=== PATIENT | female | born 1955 | race Caucasian/White ===

== ENCOUNTER 2018-12-18 06:43 | Day surgery (SDC) | payer OTHER ==
--- NOTE | 2018-12-17 14:33 | Pre-Procedure Note/Attestation ---
Pre-Procedure Note/Attestation Complete Prior to Procedure Planned Procedure: right Procedure Narrative: cataract extraction with implant right eye Indications for Procedure Pre-Operative Diagnosis: cataract right eye Attestation I attest that I discussed the nature of the procedure; its benefits; risks and complications; and alternatives (and the risks and benefits of such alternatives ), prior to the procedure, with the patient (or the patient's legal congressional representative). I attest that, if there was a reasonable possibility of needing a blood transfusion, the patient (or the patient's legal congressional representative) was given the [facility] standardized written summary, pursuant to the Wisam Bratenahl Blood Safety Act ([place] Health and Safety Code # 1645, as amended). I attest that I re-evaluated the patient just prior to the surgery and that there has been no change in the patient's H&P, except as documented below: Luis Stewart MD Dec 17, 2018 14:33
[~2018-12-18] VITALS: Ht 157.5 cm; Wt 64.4 kg
[2018-12-18] VITALS (10 sets, daily range): BP systolic 122–164; BP diastolic 53–76
[~2018-12-18 06:43] MED LIST: SYNTHROID100 MCG ORAL; SYNTHROID88 MCG ORAL; TOPIRAMATE25 MG ORAL
[2018-12-18] MEDS: Tropicamide 1% Opth 15ml Soln RIGHT EYE SCH ×3 (07:15→07:44)
[2018-12-18] MEDS: Diclofenac Sod 0.1% Op Soln RIGHT EYE SCH ×3 (07:15→07:44)
[2018-12-18] MEDS: Akten 3.5% 1ml Btl RIGHT EYE SCH ×3 (07:16→07:44)
[2018-12-18] MEDS: Phenylephrine 2.5% Op 2ml Soln RIGHT EYE SCH ×3 (07:16→07:44)
[2018-12-18] MEDS: Tobradex Opth Susp 2.5ml RIGHT EYE SCH ×3 (07:16→07:44)
[2018-12-18] MEDS: Vigamox Opth Soln 3ml RIGHT EYE SCH ×3 (07:18→07:44)
[2018-12-18] MEDS ORDERED: LR 1000ml 1,000 ML IVLG SCH (07:23)
--- NOTE | 2018-12-18 07:23 | Anethesia Preoperative Eval ---
Anesthesia Pre-op PMH/ROS General Date of Evaluation: Dec 18, 2018 Anesthesiologist: Yohannes ASA Score: ASA 2 Mallampati Score Class I : Soft palate, uvula, fauces, pillars visible Class II: Soft palate, uvula, fauces visible Class III: Soft palate, base of uvula visible Class IV: Only hard plate visible Mallampati Classification: Class II Surgeon: sam Diagnosis: right catrct Surgical Procedure: right cataract exraction with IOL Anesthesia History: none Family History: no anesthesia problems Allergies: Coded Allergies: PENICILLINS (Verified Allergy, Intermediate, rash, 12/17/18) LATEX (Verified Adverse Reaction, Mild, itching, 12/17/18) Medications: see eMAR Patient NPO?: Yes NPO Date: Dec 17, 2018 NPO Time: 22:00 Past Medical History Cardiovascular: Denies: HTN, CAD, CT, valve dz, arrhythmia, other Pulmonary: Denies: asthma, COPD, [place], other Gastrointestinal/Genitourinary: Denies: GERD, CRI, ESRD, other Neurologic/Psychiatric: Denies: dementia, CVA, depression/anxiety, TIA, other Endocrine: Reports: hypothyroidism; Denies: DM, steroids, other HEENT: Denies: cataract (L), cataract (R), glaucoma, [place] (L), [place] (R), other Hematology/Immune: Denies: anemia, DVT, bleeding disorder, other Musculoskeletal/Integumentary: Reports: OA; Denies: RA, DJD, DDD, edema, other PSxH Narrative: lap appy Anesthesia Pre-op Phys. Exam Physician Exam see chart Constitutional: NAD Cardiovascular: RRR Respiratory: CTA Airway Exam Mallampati Score: Class II MO: full ROM: full Anesthesia Pre-op A/P Labs see chart Studies Pre-op Studies: EKG - sr Risk Assessment & Plan Assessment: ASA II Plan: MAC Status Change Before Surgery: No Pre-Antibiotics Drug: N/A Paty Maki MD Dec 18, 2018 07:23
[2018-12-18] MEDS ORDERED: DiphenhydrAMINE 50mg/ml Inj IVP PRN (07:30)
[2018-12-18] MEDS ORDERED: EPINEPHrine 1mg/1ml Amp ONE (08:13)
[2018-12-18] MEDS ORDERED: Dexamethasone 4mg/ml vial ONE (08:14)
[2018-12-18] MEDS ORDERED: Povidone-Iodine 5% opth solution ONE (08:14)
[2018-12-18] MEDS ORDERED: BSS 15ml BTL ONE (08:14)
[2018-12-18] MEDS ORDERED: Sodium Hyaluronate 14 mg/ml 0.85ml ONE (08:14)
[2018-12-18] MEDS ORDERED: BSS 500ml btl ONE (08:14)
[2018-12-18] MEDS ORDERED: Midazolam 2mg/2ml Inj ONE (08:21)
[2018-12-18] MEDS ORDERED: Lidocaine 1% MPF 10mg/ml 5ml ONE ×2 (08:21→08:57)
[2018-12-18] MEDS ORDERED: DiphenhydrAMINE 50mg/ml Inj ONE (08:21)
[2018-12-18] MEDS ORDERED: fentaNYL 100 mcg/2 mL IV ONE (08:21)
[2018-12-18] MEDS ORDERED: NS Irrig 1000ml ONE (08:30)
[2018-12-18] MEDS ORDERED: Sterile Water Irrig 1000ml IRRIG ONE (08:30)
--- NOTE | 2018-12-18 08:55 | Brief Operative Note ---
Immediate Post Operative Note Operative Note Pre-op Diagnosis: cataract right eye Procedure: phacoemulsification of cataract with implant right eye Post-op Diagnosis: same as pre-op Surgeon: luis cintron Yard Inspector: none Anesthesiologist: alicia avila md Anesthesia: MAC Specimen: none Complications: none Condition: stable Fluids: none Estimated Blood Loss: none Drains: none Implant(s) used?: Yes Luis Cintron MD Dec 18, 2018 08:55
--- NOTE | 2018-12-18 08:59 | Immediate Post-Op Evaluation ---
Immediate Post-Op Evalulation Immediate Post-Op Evalulation Procedure: right cataract extraction with IOL Date of Evaluation: Dec 18, 2018 Time of Evaluation: 08:01 IV Fluids: 400 Blood Products: 0 Estimated Blood Loss: 0 Urinary Output: 0 Blood Pressure Systolic: 159 Blood Pressure Diastolic: 78 Pulse Rate: 82 Respiratory Rate: 16 O2 Sat by Pulse Oximetry: 96 Temperature (Fahrenheit): 97.6 Pain Score (1-10): 0 Nausea: No Vomiting: No Complications 0 Patient Status: awake, reacts, patent, none Hydration Status: adequate Drug: N/A Paty Maki MD Dec 18, 2018 08:59
--- NOTE | 2018-12-18 09:01 | 48 Hour Post Anesthesia Eval ---
Post Anesthesia Evaluation Procedure: right cataract extraction with IOL Date of Evaluation: Dec 18, 2018 Airway: patent Nausea: No Vomiting: No Hydration Status: adequate Cardiopulmonary Status: at baseline Mental Status/LOC: patient returned to baseline Post-Anesthesia Complications: 0 Follow-up care needed: ready to discharge Paty Maki MD Dec 18, 2018 09:01
--- NOTE | 2018-12-18 16:45 | Operative Note - Dictated ---
DATE OF OPERATION: 12/18/2018 PREOPERATIVE DIAGNOSIS: Cataract, right eye. POSTOPERATIVE DIAGNOSIS: Cataract, right eye. PROCEDURE: Phacoemulsification cataract right eye with placement of posterior chamber intraocular lens. SURGEON: Luis Stewart M.D. GOVERNMENT AFFAIRS RESEARCHER: None. ANESTHESIA: MAC/topical. ANESTHESIOLOGIST: Nakia Walker M.D. INDICATION FOR PROCEDURE: Poor vision right eye. DESCRIPTION OF FINDINGS: Dense nuclear sclerotic cataract, right eye. DESCRIPTION OF PROCEDURE: The patient received a topical anesthetic block consisting of 3.5% Akten eye drops. The eye was then prepped and draped in usual manner. A lid speculum was placed. An operating Zeiss microscope was positioned. A temporal corneal groove was made with the pepper blade. A SuperSharp blade made a stab incision at the 12 o'clock position. A 0.1 mL of 1% nonpreserved intracameral lidocaine was injected. Healon was instilled into the anterior chamber and a 2.5/2.9 mm trapezoidal pepper blade was used to complete the temporal corneal wound. A cystotome was used to create an anterior capsular flap. Utrata forceps were used to complete the capsulorrhexis. BSS on a cannula was used to hydrodissect the nucleus. The lens nucleus was phacoemulsified in a phaco-fracture technique. Remaining cortical material was removed with the I/A and the posterior capsule polished with the I/A on Cap vac. Healon was instilled in the capsular bag and anterior chamber and a TECNIS pre-loaded foldable one-piece posterior chamber intraocular lens, model PCB00, power 16.0 diopter, serial #[id number] was placed in the capsular bag. The I/A tip was used to remove the Healon and position the lens. The wound edge was hydrated with BSS and a blunt-tipped cannula. The wound was checked and found to be watertight. The lid speculum was removed. A drop of TobraDex and Vigamox was placed. A clear plastic shield was taped over the eye. The patient tolerated the procedure well and left the operating room in good condition. Luis Stewart M.D. ([facility] [place] DR: KENNA JOB#: [id number] CC:
== END 2018-12-18 10:30 | disposition home or self-care (01) ==
LOC: SUR 06:43
DX: H25.11 Age-related nuclear cataract, right eye (principal); Z88.0 Allergy status to penicillin; Z91.040 Latex allergy status; E03.9 Hypothyroidism, unspecified; M19.90 Unspecified osteoarthritis, unspecified site; Z90.89 Acquired absence of other organs
CPT/HCPCS: 66984; J0171; J1100; J1200; J2250; J3010; V2632; 94003; 94150